=== PATIENT | female | born 1975 | race Caucasian/White ===

== ENCOUNTER 2022-04-13 10:57 | Emergency (ER) | payer MEDICAID, SELFPAY ==
[2022-04-13 11:00] VITALS: BP 145/92; PULSE 77; RESP 16; TEMP 36.7; O2SAT 99; BMI 40.1
--- NOTE | 2022-04-13 11:47 | ED_ITS ---
HPI - Abdominal Pain General: Chief Complaint: Abdominal Pain Stated Complaint: Sent by Dr. Santos for abd pain Time Seen by Provider: 04/13/22 11:46 Source: patient Mode of arrival: ambulatory History of Present Illness: 47-year-old female comes in complaining of abdominal pain that began several days ago. Becoming progressively worse. She is complaining mostly of epigastric pain radiating into her back is worse when she walks. No vomiting or diarrhea low-grade fever at home she denies dysuria urgency or frequency. Usual p.o. intake. Denies any medication melena hematemesis or coffee-ground emesis. MD elicited complaint: abdominal pain Onset (ago): day(s) (4) Pain Consistency: constant Location: Epigastric Severity: moderate Quality: cramping Radiation: none Migration to: no migration Exacerbating factors: nothing Relieving factors: nothing Associated Symptoms: Denies anorexia, belching, bloating, change in bowel habits, change in stool character, chills, coffee ground emesis, constipation, GI cramping, diarrhea, dyspepsia, dysuria, excessive flatus, fever(s), heartburn, hematochezia, hematuria, hematemesis, fecal incontinence, loose stools, melena, nausea, poor appetite, syncope and vomiting Review of Systems Const: Denies: fever(s), chills, fatigue or malaise ENMT: Denies: throat pain, ear or mastoid pain, nasal discharge or nasal congestion Card: Denies: chest pain, palpitations, irregular heart rhythm, edema, swelling of feet/ankles or syncope Resp: Denies: dyspnea, productive cough or non-productive cough GI: Reports: abdominal pain; Denies: nausea, vomiting, hematemesis, coffee ground emesis, heartburn, diarrhea, constipation, bloating, GI cramping, belching, excessive flatus, fecal incontinence, change in bowel habits, change in stool character, hematochezia or melena : Denies: dysuria or hematuria Skin/Breast: Denies: rash or pruritus PFSH ED PFSH: Medical History (Updated 04/13/22 @ 13:41 by Koffi Arce DO) Hypertension Surgical History (Updated 04/13/22 @ 13:21 by Koffi Arce DO) History of appendectomy History of hysterectomy Hx of cholecystectomy Social History (Updated 04/13/22 @ 13:22 by Koffi Arce DO) Smoking and tobacco status: current every day smoker Alcohol intake: current Physical Exam Const: COMMON NORMALS: no acute distress GENERAL APPEARANCE: cooperative and comfortable ORIENTATION/CONSCIOUSNESS: Yes awake, Yes oriented to person, Yes oriented to place and Yes oriented to time HENMT: COMMON NORMALS: normocephalic, atraumatic and hearing grossly normal bilaterally HEAD & SCALP: normocephalic and atraumatic Resp: COMMON NORMALS: normal respiratory effort, No retractions, No use of accessory muscles and clear to auscultation bilaterally AUSCULTATION: clear to auscultation bilaterally Cardio: COMMON NORMALS: regular rate, regular rhythm and No murmurs present (Cardio) RATE: regular rate RHYTHM: regular rhythm GI: COMMON NORMALS: Soft to palpation and No hepatosplenomegaly present AUSCULTATION: Yes normoactive bowel sounds PALPATION: Yes Soft to palpation, No Tenderness to palpation present (GI), No Guarding due to palpation present (GI) and Yes No hepatosplenomegaly present Extremity: COMMON NORMALS: normal to inspection, capillary refill normal, no clubbing, cyanosis or edema, no calf tenderness and no pedal edema Neuro: SENSORIUM/ORIENTATION: Yes oriented to person, Yes oriented to place and Yes oriented to time Skin: COMMON NORMALS: no rashes or lesions noted GENERAL SKIN EXAM: no rashes or lesions noted Course Vital Signs: Vital signs: Vital Signs Temperature 98.0 F 04/13/22 11:00 Pulse Rate 74 04/13/22 13:58 Respiratory Rate 16 04/13/22 13:58 Blood Pressure 118/73 04/13/22 13:58 Pulse Oximetry 100 04/13/22 13:58 Oxygen Delivery Me thod 04/13/22 11:00 MDM - Abdominal Pain Medical Decision Making Elevated white count CT shows diverticulitis started on Cipro and Flagyl. Clear liquid diet next 2 to 3 days and advance as tolerated follow-up with primary care Medical Records I reviewed the patient's medical records. Lab Data I reviewed the patient's lab results. : 04/13/22 12:20 04/13/22 12:20 Labs/Radiology: Radiology Impressions Abdomen/Pelvis CT 04/13/22 12:46 IMPRESSION: 1. Acute sigmoid diverticulitis. No abscess or free air identified. 2. Prior appendectomy and cholecystectomy. 3. Prior hysterectomy. Laboratory Results WBC 13.6 10^3/uL (4.0-10.0) H 04/13/22 12:20 RBC 4.49 10^6/uL (4.1-5.3) 04/13/22 12:20 Hgb 14.4 g/dL (11.5-15.3) 04/13/22 12:20 Hct 43.1 % (37.0-47.0) 04/13/22 12:20 MCV 96.0 fl (81-99) 04/13/22 12:20 MCH 32.1 pg (28.0-34.0) 04/13/22 12:20 MCHC 33.4 g/dL (30.0-36.0) 04/13/22 12:20 RDW 13.1 % (12.1-15.1) 04/13/22 12:20 Plt Count 339 10^3/cmm (130-400) 04/13/22 12:20 MPV 9.2 fL (7.4-10.4) 04/13/22 12:20 Neut % (Auto) 71.7 % 04/13/22 12:20 Lymph % (Auto) 21.0 % 04/13/22 12:20 [place] % (Auto) 5.4 % 04/13/22 12:20 Eos % (Auto) 1.1 % 04/13/22 12:20 Baso % (Auto) 0.4 % 04/13/22 12:20 Neut # (Auto) 9.77 10^3/uL (1.8-7.7) H 04/13/22 12:20 Lymph # (Auto) 2.9 10^3/uL (0.8-4.8) 04/13/22 12:20 [place] # (Auto) 0.7 10^3/uL (0.2-0.9) 04/13/22 12:20 Eos # (Auto) 0.2 10^3/uL (0.0-0.8) 04/13/22 12:20 Baso # (Auto) 0.1 10^3/uL (0.0-0.1) 04/13/22 12:20 Nucleated RBC % (auto) 0 % 04/13/22 12:20 Nucleated RBCs # 0.0 /100WBC 04/13/22 12:20 Sodium 137 mmol/L (136-145) 04/13/22 12:20 Potassium 4.0 mmol/L (3.5-5.1) 04/13/22 12:20 Chloride 101 mmol/L (98-107) 04/13/22 12:20 Carbon Dioxide 26 mmol/L (22-29) 04/13/22 12:20 Anion Gap 14.0 (5-19) 04/13/22 12:20 BUN 7 mg/dL (6-20) 04/13/22 12:20 Creatinine 0.6 mg/dL (0.5-0.9) 04/13/22 12:20 GFR Calculation 106.3 mL/min (90-130) 04/13/22 12:20 Glucose 90 mg/dL (65-115) 04/13/22 12:20 Calculated Osmolality 282 mOsm/kg (285-295) L 04/13/22 12:20 Calcium 8.8 mg/dL (8.5-10.5) 04/13/22 12:20 Total Bilirubin 0.4 mg/dL (0.15-1.2) 04/13/22 12:20 AST 22 U/L (0-32) 04/13/22 12:20 ALT 29 U/L (0-33) 04/13/22 12:20 Alkaline Phosphatase 54 U/L (35-105) 04/13/22 12:20 Total Protein 7.3 g/dL (6.6-8.7) 04/13/22 12:20 Albumin 4.0 g/dL (3.5-5.2) 04/13/22 12:20 Globulin 3.3 g/dL (1.3-4.6) 04/13/22 12:20 Lipase 41 U/L (13-60) 04/13/22 12:20 Urine Color Yellow (Yellow) 04/13/22 12:14 Urine Appearance Clear (CLEAR) 04/13/22 12:14 Urine pH 5 (5-7) 04/13/22 12:14 Ur Specific [place] 1.015 (1.005-1.030) 04/13/22 12:14 Urine Protein 1+ (Negative) H 04/13/22 12:14 Urine Glucose (UA) Norm (Normal) 04/13/22 12:14 Urine Ketones Negative (Negative) 04/13/22 12:14 Urine Blood 2+ (Negative) H 04/13/22 12:14 Urine Nitrate Negative (Negative) 04/13/22 12:14 Urine Bilirubin Neg (Negative) 04/13/22 12:14 Urine Urobilinogen Norm mg/dL (Negative) 04/13/22 12:14 Ur Leukocyte Esterase Negative (Negative) 04/13/22 12:14 Urine RBC 0-4 /hpf (0-2) H 04/13/22 12:14 Urine WBC 0-4 /hpf (0-5) H 04/13/22 12:14 Ur Squamous Epith Cells 5-10 /hpf (0-5) H 04/13/22 12:14 Amorphous Sediment Not Reportable 04/13/22 12:14 Urine Bacteria Trace /hpf (NONE) 04/13/22 12:14 Discharge Plan Discharge Patient Disposition: Home Clinical Impression: Diverticulitis Condition: Stable Prescriptions: New ondansetron HCl 4 mg tablet 4 mg PO Q6H PRN (Reason: nausea and vomiting) Qty: 20 0RF Cipro 500 mg tablet 500 mg PO BID Qty: 20 0RF metronidazole 500 mg tablet 500 mg PO BID 10 Days Qty: 20 0RF No Action metoprolol tartrate 50 mg tablet 50 mg PO BID lisinopril 40 mg tablet 40 mg PO QAM hydrochlorothiazide 12.5 mg tablet 12.5 mg PO DAILY PRN (Reason: Edema) Discharge Orders: Discharge ED (Routine); Ordered 04/13/22 Ordered By: Koffi Arce Referrals: Ingrid Sanders PA-C [Primary Care Provider] - Discharge Diet: Clear Liquid Discharge Activity: Increase activity as tolerated Patient Instructions: Opioid Safety, Pain Management Activity Restrictions/Additional Instructions: Clear liquid diet x2 days then advance as tolerated. Start Cipro and Flagyl twice daily for 10 days. Ondansetron as needed for nausea and vomiting. Follow-up with your primary care doctor. Coding Level of Care Code ED [employer] for [employer]g Fwd Exam Detailed
--- NOTE | 2022-04-13 11:47 | ECG_ITS ---
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 Measurements Intervals [place] Rate: 74 P: 10 NE: 182 QRS: 55 QRSD: 89 T: 85 QT: 399 QTc: 443 Interpretive Statements SINUS RHYTHM NONSPECIFIC T-WAVE ABNORMALITY No previous ECG available for comparison Electronically Signed On 04-13-2022 21:21:42 CDT by Олег Ramos M.D. [id number]
[2022-04-13 12:35] LABS: Basophils # 0.1 10^3/uL (0.0-0.1); Basophils % 0.4 %; Eosinophils # 0.2 10^3/uL (0.0-0.8); Eosinophils % 1.1 %; Hematocrit 43.1 % (37.0-47.0); Hemoglobin 14.4 g/dL (11.5-15.3); Lymphocytes # 2.9 10^3/uL (0.8-4.8); Mean Corpuscular HGB Conc 33.4 g/dL (30.0-36.0); Mean Corpuscular Hemoglobin 32.1 pg (28.0-34.0); Mean Platelet Volume 9.2 fL (7.4-10.4); Monocytes # 0.7 10^3/uL (0.2-0.9); Monocytes % 5.4 %; Neutrophils # 9.77 10^3/uL (1.8-7.7); Neutrophils % 71.7 %; Nucleated Red Blood Cells % 0 %; Platelet Count 339 10^3/cmm (130-400); Red Blood Count 4.49 10^6/uL (4.1-5.3); Red Cell Distribution Width 13.1 % (12.1-15.1); White Blood Count 13.6 10^3/uL (4.0-10.0)
[2022-04-13 12:40] LABS: Add Urine Microscopic? YES; Bilirubin Urine Neg (Negative); Blood Urine 2+ (Negative); Glucose Urine UA Norm (Normal); Ketones Urine Negative (Negative); Leukocyte Esterase Urine Negative (Negative); Nitrate Urine Negative (Negative); Protein Urine 1+ (Negative); Specific Gravity, Urine 1.015 (1.005-1.030); Urine Appearance Clear (CLEAR); Urine Color Yellow (Yellow); Urobilinogen Urine Norm (Negative); pH Urine 5 (5-7)
--- NOTE | 2022-04-13 12:46 | CT_ITS ---
WS: [id number] CT ABDOMEN AND PELVIS NONCONTRAST HISTORY: Abdominal pain TECHNIQUE: Imaging performed through the abdomen and pelvis. Coronal and sagittal reformats are submi tted. All CT scans at [facility] use at least one of these dose optimization techniques: auto mated exposure control; mA and/or kV adjustment per patient size (includes targeted exams where dose is matched to clinical indication); or iterative reconstruction. DLP: 961.23 mGy.cm COMPARISON: None available. Lower thorax: Lung bases are clear. Visualized heart is normal. No hiatal hernia. Liver: Liver is slightly enlarged. No mass or bile duct dilatation on this unenhanced exam. Gallbladder: Prior cholecystectomy. Pancreas: Normal size and attenuation. Normal pancreatic duct. No pancreatitis or mass. Spleen: Normal. Adrenal glands: Normal. No mass. Right kidney: Normal size kidney with no mass or hydronephrosis. Left kidney: Normal size kidney with no mass or hydronephrosis. Aorta: Mild atherosclerosis aorta. No aneurysm. No free fluid, intraperitoneal air or significant lymphadenopathy. GI tract: Nondistended stomach. No small bowel obstruction or enteritis. Prior appendectomy. Moderate acute inflammation involving the sigmoid colon. Perisigmoid inflammation extends over a length of ap proximately 8 cm with several adjacent diverticula. There is wall thickening and narrowing of the lum en. No abscess. Abdominal wall: Small umbilical hernia contains fat only. Pelvis: Prior hysterectomy. The uterus is not identified. Ovaries are still present. The LEFT ovary c ontains a small cyst measuring 2.7 x 1.8 cm. No free fluid. Osseous structures: Prior posterior lumbar fusion at L5-S1. CT/CT abdomen pelvis wo con [id number] IMPRESSION: 1. Acute sigmoid diverticulitis. No abscess or free air identified. 2. Prior appendectomy and cholecystectomy. 3. Prior hysterectomy.
[2022-04-13 12:55] LABS: Add Urine Culture? No; Bacteria Urine TRACE /hpf; RBC Urine 0-4 /hpf (0-2); WBC Urine 0-4 /hpf (0-5)
[2022-04-13 12:56] LABS: Alanine Aminotransferase 29 U/L (0-33); Alkaline Phosphatase 54 U/L (35-105); Aspartate Amino Transferase 22 U/L (0-32); Blood Urea Nitrogen 7 mg/dL (6-20); Calcium 8.8 mg/dL (8.5-10.5); Carbon Dioxide 26 mmol/L (22-29); Chloride 101 mmol/L (98-107); Globulin 3.3 g/dL (1.3-4.6); Glomerular Filtration Rate 106.3 mL/min (90-130); Glucose 90 mg/dL (65-115); Lipase 41 U/L (13-60); Osmolality Calculated 282 mOsm/kg (285-295); Sodium 137 mmol/L (136-145); Total Bilirubin 0.4 mg/dL (0.15-1.2); Total Protein 7.3 g/dL (6.6-8.7)
[2022-04-13 13:58] VITALS: BP 118/73; PULSE 74; RESP 16; O2SAT 100
== END 2022-04-13 14:00 | disposition home or self-care (01) ==
PROVIDERS: Emergency Provider Family Medicine; PCP Physician Assistant
DX: K57.92 Diverticulitis of intestine, part unspecified, without perforation or abscess without bleeding (principal); I10 Essential (primary) hypertension; F17.210 Nicotine dependence, cigarettes, uncomplicated
CPT/HCPCS: 74176; 80053; 81001; 83690; 85025; 93005; 99285

== ENCOUNTER → 2022-07-08 09:36 | Outpatient (BNVA) | payer MEDICAID, SELFPAY | PROVIDERS: PCP Physician Assistant; Visit Provider Podiatrist Foot & Ankle Surgery | DX: M77.51 Other enthesopathy of right foot and ankle (principal); M76.61 Achilles tendinitis, right leg; L84 Corns and callosities; B35.1 Tinea unguium | CPT/HCPCS: 73630 ==

== ENCOUNTER 2022-11-24 13:03 | Outpatient (CLI) | payer MEDICAID, SELFPAY ==
--- NOTE | 2022-11-24 13:13 | MM_ITS ---
WS: [id number] BILATERAL 3D TOMOSYNTHESIS DIGITAL DIAGNOSTIC MAMMOGRAPHY WITH CAD CLINICAL INFORMATION: LUMPS/DISCHARGE RT BREAST HISTORY: Milky RIGHT nipple discharge. Chronic bilateral breast lumps. COMPARISON: None. TECHNIQUE: Bilateral CC, MLO, and ML views. FINDINGS: Scattered fibroglandular densities bilaterally. Dense nodular parenchymal tissue upper outer LEFT bruna ast. No suspicious abnormalities in the RIGHT breast deep to the areola. Ultrasound of the RIGHT areola and LEFT upper outer breast are pending. ULTRASOUND BREAST BILATERAL TECHNIQUE: Ultrasound bilateral breast focused area of concern. CLINICAL INFORMATION: LUMPS/DISCHARGE RT BREAST FINDINGS: RIGHT BREAST: Ultrasound RIGHT areola. Normal underlying parenchymal tissue. No suspicious lesions de ep to the RIGHT areola. LEFT BREAST: Ultrasound LEFT breast 12 to 3:00 position. At the 1:00 position 3 cm from the nipple th ere is a 6 x 5 x 5 mm incidental benign cyst. No other suspicious abnormalities. MM/[place] [id number] IMPRESSION: BI-RADS: 2-Benign FOLLOW UP: 1 Year Follow-up Recommend return to annual screening mammography.
== END 2022-11-24 13:04 | disposition home or self-care (01) ==
PROVIDERS: PCP Physician Assistant; Visit Provider Family Medicine
DX: N63.0 Unspecified lump in unspecified breast (principal); N60.02 Solitary cyst of left breast
CPT/HCPCS: 76642; 77062; G0279

== ENCOUNTER 2022-11-26 06:47 | Day surgery (SDC) | payer MEDICAID, SELFPAY ==
[2022-11-25 09:28] VITALS: BMI 42.0
[2022-11-26] VITALS (10 sets, daily range): BP systolic 93–109; BP diastolic 58–70; PULSE 58–63; RESP 16–18; TEMP 36.1; O2SAT 90–96
--- NOTE | 2022-11-26 | XR_ITS ---
WS: [id number] C-arm fluoroscopy of the right calcaneus, 11/26/2022 Clinical Data: [facility] Comparison: None. Findings: Dr. Phillips performed an intervention on the posterior right calcaneus. XR/XR calcaneus RT min 2V 03426 Impression: Right calcaneal surgery.
[2022-11-26] MEDS: acetaminophen 1,000 MG/100 ML PIGGYBACK 400 MG IV (07:28)
[2022-11-26] MEDS: gabapentin 300 mg Capsule PO (07:28)
[2022-11-26] MEDS: sodium chloride 0.9% 1,000 ML 30 ML IV (07:48)
--- NOTE | 2022-11-26 07:54 | W.PM.OPSUD ---
Surgery/Procedure H&P Update DATE OF PROCEDURE: November 26, 2022 DATE H&P PERFORMED: 10/28/22 CHANGES TO PREVIOUS DOCUMENTATION: No changes PREOP DIAGNOSIS: Right Achilles tendinitis PLANNED PROCEDURE: Operation Date: 11/26/22 08:00 Proposed Procedures p Partial excision bone calcaneus right foot CPT 31830,M65.271(Right) - Los Phillips DPM s Secondary repair Achilles tendon right foot CPT 88114(Right) - Los Phillips DPM s Flexor hallucis longus tendon transfer CPT 03449(Right) - Los Phillips DPM
[2022-11-26] MEDS: clindamycin 600 MG/50 ML PREMIX 100 MG IV (08:08)
--- NOTE | 2022-11-26 10:34 | ANES.PREANE2 ---
Pre-Anesthetic Assessment Height/Weight: Height 1.57 m Weight 104.326 kg Temp Pulse Resp BP Pulse Ox O2 Del Method O2 Flow Rate 97.0 F L 61 18 108/67 93 Room Air 6 11/26/22 10:32 11/26/22 10:32 11/26/22 10:32 11/26/22 10:32 11/26/22 10:32 11/26/22 10:32 11/26/22 10:08 Preop Diagnosis: Right Achilles tendinitis Operation Date: 11/26/22 08:00 Proposed Procedures p Partial excision bone calcaneus right foot CPT 70848,M65.271(Right) - Los Phillips DPM s Secondary repair Achilles tendon right foot CPT 04114(Right) - Los Phillips DPM s Flexor hallucis longus tendon transfer CPT 33733(Right) - Los Phillips DPM Familial anesthetic complications: none Was Beta Nuha taken within 24 hours: Yes Was Clonidine taken within 24 hours: N/A Last intake: Intake Last Liquid Date 11/25/22 Last Liquid Time 00:00 Last Solid Date 11/25/22 Last Solid Time 21:00 Social No alcohol and No tobacco Exam alert, oriented x 3, clear to auscultation bilaterally and regular rate & rhythm Airway Submandibular: within normal limits Cervical ROM: within normal limits Mallampati: Class II Dentition: full CV/HEM Hypertension Metabolic Morbid Obesity Anesthetic Plan ASA status: 3 Anesthesia: General and Regional (specify below) (right pop blk) Medications/Allergies Home Medications Medication Instructions Recorded Confirmed Last Taken Type lisinopril 40 mg tablet 40 mg PO QAM 04/13/22 11/26/22 11/25/22 History metoprolol tartrate 50 mg tablet 50 mg PO BID 04/13/22 11/26/22 11/26/22 History amlodipine 10 mg tablet 10 mg PO DAILY 08/12/22 11/26/22 11/26/22 History fenofibrate 54 mg tablet 54 mg PO DAILY 08/12/22 11/25/22 11/25/22 History acetaminophen 650 mg 650 mg PO Q8H 11/25/22 11/25/22 11/25/22 History tablet,extended release (Tylenol 8 Hour) hydrocodone 5 mg-acetaminophen 325 1 tab PO Q6H PRN pain #28 tabs 11/26/22 Unknown Rx mg tablet Allergies Allergy/AdvReac Type Severity Reaction Status Date / Time Penicillins Allergy ALGY-Swell Verified 11/25/22 09:23 Lip/Tongue/Throat Current Medications Generic Name Dose Route Start Last Admin Trade Name Jonathan PRN Reason Stop Dose Admin Sodium Chloride 1,000 mls @ 30 mls/hr 11/26/22 07:30 11/26/22 07:48 Sodium Chloride 0.9% IV 30 mls/hr .Q24H CHRISTOPHER Administration PFSH Anesthesia Medical History Hypertension Surgical History History of appendectomy History of hysterectomy Hx of cholecystectomy Social History Smoking and tobacco status: current every day smoker Alcohol intake: current Data Anesthesia Cardiac Studies: No Data to Display Anesthesia Procedures Nerve Block Nerve Block 1: Main Anesthesia: general anesthesia Time Out Performed: Yes Consent: requested by attending/covering physician, from patient, risks and benefits reviewed and patient agrees to proceed Nerve block location: popliteal (right) Anesthesia monitors applied: pulse oximetry, EKG, BP cuff and oxygen Nerve block position: supine Anesthetic Used: ropivicaine 0.5% Amount of anesthesia used (mL): 30 Ultrasound used to: recognize landmarks Nerve Stimulator Used?: No Interscalene/Femoral BLK: 4 stimuplex 21 g needle used for position and inplane approach Injection: neg aspiration of heme Patient Tolerated Procedure: well Complications: none
[2022-11-26] MEDS: HYDROcodone-acetaminophen 5-325 mg Tablet 1 TAB PO (10:35)
[2022-11-26] MEDS: HYDROmorphone 1 mg/mL INJ 1 mL 0.5 MG IVP (10:53)
--- NOTE | 2022-11-26 16:20 | P.OP_ITS ---
Operative Report Date of procedure: November 26, 2022 Pre-op diagnosis: Preop Diagnosis Right Achilles tendinitis Post-op diagnosis: 1. Right Achilles tendinitis 2. Right retrocalcaneal exostosis Post-op findings: Degenerative changes to right Achilles tendon and large retrocalcaneal bone spur Procedure done: 1. Partial excision bone calcaneus right foot CPT 45458 2. Secondary repair Achilles tendon right foot CPT 86180 Implants: [employer] speed bridge Surgeon: Spencer ReesPKurtis Estimated blood loss: Less than 10 cc Procedure: Patient is a 47-year-old female that has a history of right Achilles tendinitis and retrocalcaneal bone spur. The patient has had the aforementioned chief complaint for some time. Conservative treatment measures have been attempted and the patient has opted for surgical intervention at this time. A lengthy discussion regarding the procedure, including risks and complications has been had with the patient and is noted in the recent clinic note. Written and verbal consent have been obtained. All patient questions have been answered to the patient?s satisfaction. No written or verbal guarantees have been given or implied. The patient has been NPO since midnight. The history has been reviewed and the history and physical is current. The signed consent was confirmed and placed in the patient chart. Patient imaging has been reviewed and is consistent with the diagnosis. Under mild sedation, the patient was brought into the operating room and placed on the table in the prone position. IV antibiotics were given by the anesthesia team as preoperative surgical prophylaxis. General sedation was then performed by the anesthesiateam. A pneumatic tourniquet was then placed about the right thigh. The operative extremity was then prepped and draped in the usual fashion. The extremity was then elevated and exsanguinated before the tourniquet was inflated to 325 mmHg. After inflation, the following procedure was then performed. Attention was directed to the posterior aspect of the right heel.An approximately 6 cm longitudinal incision was made over the posterior aspect of the heel, centered over the Edward's deformity. The incision was deepened through the skin and subcutaneous tissue, and the underlying Achilles tendon was identified and protected. Using a combination of sharp dissection and electrocautery, the soft tissues were carefully dissected to expose the promi nent bony prominence associated with the Edward's deformity. A sagittal saw and rongeurs were utilized to perform a resection of the bony prominence, taking care to protect the underlying soft tissues. Following the Edward's resection, attention was turned to the Achilles tendon. Any adhesions, scar tissue, or degenerative tissue present within the tendon were meticulously debrided using a combination of sharp dissection and a shaver. Care was taken to preserve healthy tendon tissue and maintain the integrity of the tendon. After the debridement, the [employer] Speed Bridge system was employed for the repair of the Achilles tendon. The appropriate drill holes were made in the calcaneus and the distal end of the tendon. Sutures were then passed through the drill holes, and the tendon was repaired using the Speed Bridge construct, achieving stable fixation. The wound was thoroughly irrigated with saline solution to remove any debris or bone fragments. Hemostasis was achieved, and the wound was closed in layers. The subcutaneous tissue was approximated with absorbable sutures, and the skin was closed with a combination of absorbable sutures and 3-0 nylon. A sterile dressing was applied over the surgical site, and a well-padded posterior splint was applied to immobilize the foot and ankle. The patient tolerated the procedure well, and there were no intraoperative complications. The tourniquet was let down and good hyperemic response was noted all digits of the right foot The patient tolerated the procedure and anesthesia well and without complication. The patient was transported from the operating room to the recovery room with vital signs stable and vascular status intact to all digits of the right foot. The patient was given both written and verbal instructions to remain nonweightbearing to the operative extremity, to keep dressings/splint clean, dry and intact and to take pain medication as directed. The patient will follow-up in the outpatient setting at their scheduled appointment. The patient was discharged with my personal number and was instructed to call if any questions or issues should arise. They were discharged home once anesthesia criteria was met.
--- NOTE | 2022-11-26 16:58 | ANE.PACU2 ---
Inpatient post-anesthesia follow up: Airway intact: Yes Vital signs: Temperature 97.0 F Pulse Rate 58 Respiratory Rate 18 Blood Pressure 106/61 Pulse Oximetry 96 Oxygen Delivery Me thod Room Air Oxygen Flow Rate 6 Fraction of Inspir ed Oxygen Hydration adequate: Yes Nausea and vomiting: No Pain level: 3 Mental status: Baseline
== END 2022-11-26 11:23 | disposition home or self-care (01) ==
PROVIDERS: PCP Physician Assistant; Visit Provider Podiatrist Foot & Ankle Surgery
PROC: (CPT 27654; principal; 2022-11-26 08:00)
PROC: (CPT 27654; 2022-11-26 08:00)
PROC: (CPT 27654; 2022-11-26 08:00)
DX: M76.61 Achilles tendinitis, right leg (principal); M77.31 Calcaneal spur, right foot; I10 Essential (primary) hypertension; E66.01 Morbid (severe) obesity due to excess calories; Z68.41 Body mass index [BMI] 40.0-44.9, adult; F17.200 Nicotine dependence, unspecified, uncomplicated
CPT/HCPCS: 27654; 28118; 73650; 76000; J0131; J0330; J1100; J1170; J2250; J2370; J2405; J2704; J2710; J2795; J3010; J3490; J7030

== ENCOUNTER 2022-12-10 15:39 | Outpatient (CLI) | payer MEDICAID, SELFPAY | END 2022-12-10 15:40 | disposition home or self-care (01) | LOC: SPT 15:40 | PROVIDERS: PCP Physician Assistant; Visit Provider Podiatrist Foot & Ankle Surgery | DX: Z46.89 Encounter for fitting and adjustment of other specified devices (principal); Z98.890 Other specified postprocedural states | CPT/HCPCS: 97760; L4361 ==

== ENCOUNTER → 2022-12-23 14:42 | Outpatient (BNVA) | payer MEDICAID, SELFPAY | PROVIDERS: PCP Physician Assistant; Visit Provider Podiatrist Foot & Ankle Surgery | DX: Z98.890 Other specified postprocedural states (principal) | CPT/HCPCS: 73630 ==

== ENCOUNTER → 2023-01-06 14:52 | Outpatient (BNVA) | payer MEDICAID, SELFPAY | PROVIDERS: PCP Physician Assistant; Visit Provider Podiatrist Foot & Ankle Surgery | DX: M79.671 Pain in right foot (principal); T81.49XA Infection following a procedure, other surgical site, initial encounter; Y83.8 Other surgical procedures as the cause of abnormal reaction of the patient, or of later complication, without mention of misadventure at the time of the procedure; Z98.890 Other specified postprocedural states | CPT/HCPCS: 73630; 87070; 87075; 87077; 87186; 87205 ==

== ENCOUNTER 2023-03-08 03:44 | Emergency (ER) | payer MEDICAID, SELFPAY ==
[2023-03-08 03:48] VITALS: BP 171/82; PULSE 83; RESP 18; TEMP 36.5; O2SAT 95; BMI 38.7
--- NOTE | 2023-03-08 03:53 | CTR_ITS ---
PROCEDURE INFORMATION: Exam: CT Abdomen And Pelvis With Contrast Exam date and time: 03/08/2023 4:00 AM Age: 48 years old Clinical indication: Abdominal pain; Localized; Left lower quadrant (llq); Prior surgery; Surgery date: 6+ months; Surgery type: Gb. Appy. Hysterectomy. Lumbar fusion. Patient HX: C/O llq pain; Additional info: Abd pain TECHNIQUE: Imaging protocol: Computed tomography of the abdomen and pelvis with contrast. Radiation optimization: All CT scans at this facility use at least one of these dose optimization techniques: automated exposure control; mA and/or kV adjustment per patient size (includes targeted exams where dose is matched to clinical indication); or iterative reconstruction. Contrast material: OMNI 350; Contrast volume: 100 ml; Contrast route: INTRAVENOUS (IV); REPORTING DATA: Count of CT and Cardiac NM exams in prior 12 months: This patient has received [address] and 0 known cardiac nuclear medicine studies in the 12 months prior to the current study. COMPARISON: CT abdomen pelvis wo con [id number] 04/13/2022 1:03 PM RADIATION DOSE METRICS: Total DLP (mGy-cm): 955.93 FINDINGS: Liver: Normal. No mass. Gallbladder and bile ducts: Cholecystectomy. Unremarkable biliary system. Pancreas: Normal. No ductal dilation. Spleen: Normal. No splenomegaly. Adrenal glands: Normal. No mass. Kidneys and ureters: Normal. No hydronephrosis. Stomach and bowel: Diverticulosis coli. Enlarged enhancing diverticulum in the proximal sigmoid colon segment with adjacent stranding conspicuous axial series 4, image 54 and coronal reconstruction series 6, image 25. Negative for bowel obstruction. Appendix: No evidence of appendicitis. Intraperitoneal space: Unremarkable. No free air. No significant fluid collection. Vasculature: Unremarkable. No abdominal aortic aneurysm. Lymph nodes: Unremarkable. No enlarged lymph nodes. Urinary bladder: Unremarkable as visualized. Reproductive: Hysterectomy. Mildly enlarged left ovary with small cyst estimated 2.6 cm x 2.3 cm. Normal right ovary. Bones/joints: L5-S1 lumbar spine fusion without complication. Negative fracture. Soft tissues: Unremarkable. CT/CT abdomen pelvis w con* [id number] IMPRESSION: Acute diverticulitis in the proximal sigmoid colon.
--- NOTE | 2023-03-08 03:54 | W.ED.ABDPA2 ---
HPI - Abdominal Pain General: Chief Complaint: Abdominal Pain Stated Complaint: abd pain Time Seen by Provider: 03/08/23 03:48 Source: patient Mode of arrival: ambulatory Limitations: no limitations History of Present Illness: 48-year-old female states she been having abdominal pain throughout the day. States been suprapubic and left lower quadrant is worsened tonight states pain sharp in nature rates it a 6 out of 10. She denies any fever denies any vomiting or diarrhea denies any radiation of her pain. Associated Symptoms: Denies chills, diarrhea, dysuria, fever(s), nausea and vomiting Review of Systems Const: Denies: fever(s), chills, body aches or change in appetite ENMT: Denies: throat pain or dental pain Card: Denies: chest pain Resp: Denies: dyspnea GI: Reports: abdominal pain; Denies: nausea, vomiting or diarrhea : Denies: dysuria Musc: Denies: neck pain or back pain Skin/Breast: Denies: rash Neuro: Denies: headache(s) PFSH ED PFSH: Medical History Hypertension Surgical History History of appendectomy History of hysterectomy Hx of cholecystectomy Social History Smoking and tobacco status: current every day smoker Alcohol intake: current Physical Exam Const: COMMON NORMALS: no acute distress, patient oriented x3 and healthy appearing HENMT: COMMON NORMALS: normocephalic and atraumatic HEAD & SCALP: normocephalic and atraumatic Eye: COMMON NORMALS: conjunctivae normal CONJUNCTIVA: Yes conjunctivae normal Neck/C-Spine: COMMON NORMALS: full ROM and supple Chest: COMMONS NORMALS: normal inspection of the chest and normal palpation of entire chest wall Resp: COMMON NORMALS: normal respiratory effort, No retractions, No use of accessory muscles and clear to auscultation bilaterally AUSCULTATION: clear to auscultation bilaterally Cardio: COMMON NORMALS: regular rate, regular rhythm and No murmurs present (Cardio) RATE: regular rate RHYTHM: regular rhythm GI: COMMON NORMALS: Normal to inspection, nondistended, normoactive bowel sounds present, Soft to palpation and no masses PALPATION: Yes Soft to palpation and Yes Tenderness to palpation present (GI) Details: LLQ Extremity: COMMON NORMALS: normal to inspection and full ROM Neuro: COMMON NORMALS: patient oriented x3, moves all extremities and no focal motor deficits Psych: COMMON NORMALS: mental status grossly normal, Normal thought process present and cooperative THOUGHT PROCESS: Normal thought process present Skin: COMMON NORMALS: no rashes or lesions noted and no wounds GENERAL SKIN EXAM: no rashes or lesions noted Course Vital Signs: Vital signs: Vital Signs Temperature 97.7 F 03/08/23 03:48 Pulse Rate 71 03/08/23 04:36 Respiratory Rate 18 03/08/23 04:36 Blood Pressure 110/68 03/08/23 04:36 Pulse Oximetry 93 03/08/23 04:36 Oxygen Delivery Me thod Nasal Cannula 03/08/23 04:36 Oxygen Flow Rate 2 03/08/23 04:36 MDM - Abdominal Pain Medical Decision Making Patient presents with abdominal pain CT does show diverticulitis her pains improved. She wants to try oral treatment at home we will start her on Cipro Flagyl she is to follow-up with PCP return if worsening she understands agrees to plan. Medical Records I reviewed the patient's medical records. Lab Data I reviewed the patient's lab results. 03/08/23 03:58 03/08/23 03:58 Labs/Radiology: Radiology Impressions Abdomen/Pelvis CT 03/08/23 03:53 IMPRESSION: Acute diverticulitis in the proximal sigmoid colon. Laboratory Results WBC 16.82 10^3/uL (3.29-11.43) H 03/08/23 03:58 RBC 5.00 10^6/uL (3.85-5.65) 03/08/23 03:58 Hgb 15.90 g/dL (11.27-16.99) 03/08/23 03:58 Hct 46.5 % (36-47) 03/08/23 03:58 MCV 93.0 fl (85-98) 03/08/23 03:58 MCH 31.8 pg (27-33) 03/08/23 03:58 MCHC 34.2 g/dL (30-55) 03/08/23 03:58 RDW 12.9 % (12.1-15.1) 03/08/23 03:58 Plt Count 304 10^3/cmm (157-399) 03/08/23 03:58 MPV 9.0 fL (7.4-10.4) 03/08/23 03:58 Neut % (Auto) 79.9 % 03/08/23 03:58 Lymph % (Auto) 11.6 % 03/08/23 03:58 [place] % (Auto) 7.1 % 03/08/23 03:58 Eos % (Auto) 0.7 % 03/08/23 03:58 Baso % (Auto) 0.3 % 03/08/23 03:58 Neut # (Auto) 13.45 10^3/uL (1.8-7.7) H 03/08/23 03:58 Lymph # (Auto) 2.0 10^3/uL (0.8-4.8) 03/08/23 03:58 [place] # (Auto) 1.2 10^3/uL (0.2-0.9) H 03/08/23 03:58 Eos # (Auto) 0.1 10^3/uL (0.0-0.8) 03/08/23 03:58 Baso # (Auto) 0.1 10^3/uL (0.0-0.1) 03/08/23 03:58 Nucleated RBC % (auto) 0 % 03/08/23 03:58 Nucleated RBCs # 0.0 /100WBC 03/08/23 03:58 Sodium 137 mmol/L (136-145) 03/08/23 03:58 Potassium 3.5 mmol/L (3.5-5.1) 03/08/23 03:58 Chloride 103 mmol/L (98-107) 03/08/23 03:58 Carbon Dioxide 22 mmol/L (22-29) 03/08/23 03:58 Anion Gap 15.5 (5-19) 03/08/23 03:58 BUN 16 mg/dL (6-20) 03/08/23 03:58 Creatinine 0.5 mg/dL (0.5-0.9) 03/08/23 03:58 GFR Calculation 130.6 mL/min (90-130) H 03/08/23 03:58 Glucose 109 mg/dL (65-115) 03/08/23 03:58 Calculated Osmolality 286 mOsm/kg (285-295) 03/08/23 03:58 Calcium 9.1 mg/dL (8.5-10.5) 03/08/23 03:58 Total Bilirubin 0.3 mg/dL (0.15-1.2) 03/08/23 03:58 AST 12 U/L (0-32) 03/08/23 03:58 ALT 17 U/L (0-33) 03/08/23 03:58 Alkaline Phosphatase 55 U/L (35-105) 03/08/23 03:58 Total Protein 7.0 g/dL (6.6-8.7) 03/08/23 03:58 Albumin 4.4 g/dL (3.5-5.2) 03/08/23 03:58 Globulin 2.6 g/dL (1.3-4.6) 03/08/23 03:58 Lipase 32 U/L (13-60) 03/08/23 03:58 Urine Color Yellow (Yellow) 03/08/23 04:15 Urine Appearance Clear (CLEAR) 03/08/23 04:15 Urine pH 5 (5-7) 03/08/23 04:15 Ur Specific [place] 1.020 (1.005-1.030) 03/08/23 04:15 Urine Protein 2+ (Negative) H 03/08/23 04:15 Urine Glucose (UA) Norm (Normal) 03/08/23 04:15 Urine Ketones 1+ (Negative) H 03/08/23 04:15 Urine Blood 2+ (Negative) H 03/08/23 04:15 Urine Nitrate Negative (Negative) 03/08/23 04:15 Urine Bilirubin Neg (Negative) 03/08/23 04:15 Urine Urobilinogen Neg mg/dL (Negative) 03/08/23 04:15 Ur Leukocyte Esterase Negative (Negative) 03/08/23 04:15 Amorphous Sediment Not Reportable 03/08/23 04:15 Discharge Plan Discharge Patient Disposition: Home Clinical Impression: Diverticulitis Condition: Stable Prescriptions: New hydrocodone-acetaminophen 5-325 mg tablet 1 tab PO Q6H PRN (Reason: pain) Qty: 14 0RF metronidazole 500 mg tablet 500 mg PO Q8H 7 Days Qty: 21 0RF Cipro 500 mg tablet 500 mg PO BID Qty: 14 0RF ondansetron 4 mg tablet,disintegrating 4 mg PO Q6H PRN (Reason: nausea and vomiting) Qty: 14 0RF No Action hydrocodone-acetaminophen 5-325 mg tablet 1 tab PO Q6H PRN (Reason: pain) 3 Days Qty: 12 0RF sulfamethoxazole-trimethoprim [Bactrim DS] 800-160 mg tablet 1 tab PO BID Qty: 14 0RF (DME) heel wedge See Rx Instructions .Route .MEDSUPPLY Qty: 1 0RF Rx Instructions: As directed methylprednisolone [Medrol (Darryl)] 4 mg tablets,dose pack See Rx Instructions PO PER PKG DIR Qty: 21 0RF Rx Instructions: PO PER PKG DIR fenofibrate 54 mg tablet 54 mg PO DAILY amlodipine 10 mg tablet 10 mg PO DAILY (DME) CAM boot 9 See Rx Instructions .Route .MEDSUPPLY Qty: 1 0RF Rx Instructions: As directed NON WEIGHT BEARING hydrocodone-acetaminophen 5-325 mg tablet 1 tab PO Q6H PRN (Reason: pain) 4 Days Qty: 16 0RF metoprolol tartrate 50 mg tablet 50 mg PO BID lisinopril 40 mg tablet 40 mg PO QAM Tylenol 8 Hour 650 mg Tablet Extended Release 650 mg PO Q8H Discharge Orders: Discharge ED (Routine); Ordered 03/08/23 Ordered By: Arjun Marte Referrals: Ingrid Sanders PA-C [Primary Care Provider] - 1-3 days Discharge Diet: Advance as tolerated Discharge Activity: Resume usual activity Patient Instructions: Diverticulitis (ED), Opioid Safety Coding Level of Care Code ED Piercing Specialist for Dixon Shearer
[2023-03-08] MEDS: iohexol 350 mg/mL 500 mL Btl (per mL) IV (04:01)
[2023-03-08 04:05] LABS: Basophils # 0.1 10^3/uL (0.0-0.1); Basophils % 0.3 %; Eosinophils # 0.1 10^3/uL (0.0-0.8); Eosinophils % 0.7 %; Hematocrit 46.5 % (36-47); Lymphocytes % 11.6 %; Mean Corpuscular HGB Conc 34.2 g/dL (30-55); Mean Corpuscular Hemoglobin 31.8 pg (27-33); Monocytes # 1.2 10^3/uL (0.2-0.9); Monocytes % 7.1 %; Neutrophils # 13.45 10^3/uL (1.8-7.7); Neutrophils % 79.9 %; Nucleated Red Blood Cells % 0 %; Platelet Count 304 10^3/cmm (157-399); Red Cell Distribution Width 12.9 % (12.1-15.1); White Blood Count 16.82 10^3/uL (3.29-11.43)
[2023-03-08] MEDS: sodium chloride 0.9% 1,000 ML 999 ML IV (04:09)
[2023-03-08 04:18] VITALS: RESP 18; O2SAT 95
[2023-03-08] MEDS: ondansetron 2 mg/ML SDV 2 mL 4 MG IVP (04:18)
[2023-03-08] MEDS: morphine 4 mg/mL SDV 1 mL IVP (04:18)
[2023-03-08 04:21] VITALS: BP 171/82; PULSE 76; RESP 18; O2SAT 92
[2023-03-08 04:27] LABS: Alanine Aminotransferase 17 U/L (0-33); Albumin Level 4.4 g/dL (3.5-5.2); Alkaline Phosphatase 55 U/L (35-105); Anion Gap 15.5 (5-19); Aspartate Amino Transferase 12 U/L (0-32); Blood Urea Nitrogen 16 mg/dL (6-20); Calcium 9.1 mg/dL (8.5-10.5); Carbon Dioxide 22 mmol/L (22-29); Chloride 103 mmol/L (98-107); Creatinine Clr Calc Pharmacy 151.2465; Globulin 2.6 g/dL (1.3-4.6); Glomerular Filtration Rate 130.6 mL/min (90-130); Glucose 109 mg/dL (65-115); Lipase 32 U/L (13-60); Osmolality Calculated 286 mOsm/kg (285-295); Potassium 3.5 mmol/L (3.5-5.1); Sodium 137 mmol/L (136-145); Total Bilirubin 0.3 mg/dL (0.15-1.2)
[2023-03-08 04:35] LABS: Add Urine Microscopic? YES; Bilirubin Urine Neg (Negative); Blood Urine 2+ (Negative); Glucose Urine UA Norm (Normal); Ketones Urine 1+ (Negative); Leukocyte Esterase Urine Negative (Negative); Nitrate Urine Negative (Negative); Protein Urine 2+ (Negative); Urine Appearance Clear (CLEAR); Urine Color Yellow (Yellow); Urobilinogen Urine Neg (Negative); pH Urine 5 (5-7)
[2023-03-08 04:36] VITALS: BP 110/68; PULSE 71; RESP 18; O2SAT 93
[2023-03-08 04:41] LABS: Amorphous Sediment Urine 1+ /hpf; Mucus Urine 2+ /hpf; RBC Urine 0-4 /hpf (0-2); WBC Urine RARE /hpf (0-5)
[2023-03-08 04:42] LABS: Add Urine Culture? No
[2023-03-08] MEDS: ciprofloxacin 500 mg Tablet PO (04:47)
[2023-03-08] MEDS: metroNIDAZOLE 500 MG Tablet PO (04:47)
[2023-03-08 04:54] VITALS: BP 136/82; PULSE 75; RESP 18; O2SAT 95
== END 2023-03-08 04:56 | disposition home or self-care (01) ==
PROVIDERS: Emergency Provider Emergency Medicine; PCP Physician Assistant
DX: K57.32 Diverticulitis of large intestine without perforation or abscess without bleeding (principal); I10 Essential (primary) hypertension; F17.210 Nicotine dependence, cigarettes, uncomplicated
CPT/HCPCS: 74177; 80053; 81001; 83690; 85025; 96361; 96374; 96375; 99285; J2270; J2405; J7030; Q9967

== ENCOUNTER → 2023-09-02 13:47 | Outpatient (BNVA) | payer BC, SELFPAY | PROVIDERS: PCP Physician Assistant; Visit Provider Emergency Medicine | DX: M25.532 Pain in left wrist (principal); M25.522 Pain in left elbow; M25.512 Pain in left shoulder | CPT/HCPCS: 73030; 73080; 73110 ==

== ENCOUNTER 2024-02-17 07:21 | Outpatient (CLI) | payer BC, MEDICAID, SELFPAY ==
--- NOTE | 2024-02-17 07:25 | ECG_ITS ---
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 Interpretive Statements NAME OF STUDY: LEXISCAN SESTAMIBI STRESS TEST INDICATION: [Chest Pain; Shortness of Breath, ] Procedure: At the baseline, the blood pressure was 139/89 mmHg with a heart rate of 76 bpm. The electrocardiogram showed normal sinus rhythm, normal axis with normal ST and T's. The Lexiscan was infused over a period of 20 seconds. A total of 0.4 mg of Lexiscan was infused. The stress phase was continued for a total of 5 minutes. Heart rate was at the end of stress phase was 96 bpm and a blood pressure of 138/83 mmHg. The EKG at the peak infusion revealed normal sinus rhythm with no significant ST-T wave changes. Sestamibi was injected 20 seconds after the Lexiscan infusion. Blood pressure at the end of recovery phase was 140/91 mmHg with a heart rate of 95 bpm. Conclusion: 1. Normal EKG response to Lexiscan infusion 2. No Lexiscan induced chest pain or cardiac arrhythmia. 3. Normal blood pressure and heart rate response. 4. Sestamibi/sestamibi perfusion scan pending; see separate report. Electronically Signed On 02-26-2024 9:21:23 CDT by Zain Alas M.D. [id number]
--- NOTE | 2024-02-17 07:25 | NMCV_ITS ---
NM raphael perf SPECT r/s* [id number] Flor Culp Age: 49 Gender: F : 1975 Exam Date: 02/17/2024 08:01 Ordering Phys: Carlos Elizondo MD ([email or web address]) Technologist: RAMÍREZ Encarnacion Exam Location: [facility] Indications: CP, SOB STRESS TEST [facility] IMAGE PROTOCOL Rest/Stress 1 Lexiscan Day Radiopharmaceutical Dose (mCi) Administration Site Administered by Rest: Tc-99m 10.6 IV RAMÍREZ Encarnacion Sestamibi Stress:Tc-99m 32.8 IV RAMÍREZ Encarnacion Sestamibeverley Rest: 17-Feb-2024 60 Discovery 630 Stress: 17-Feb-2024 30 Discovery 630 0.4mg Lexiscan. Images obtained in supine and prone position. SPECT RESULTS Technical Quality: Good Raw Data Analysis: Breast attenuation Image Corrections: No attenuation or motion correction applied Summed Stress Score: 1 Summed Rest Score: 0 Summed Difference Score: 1 PERFUSION FINDINGS There is a small sized area of reversible perfusion defect seen in the inferior and inferolateral rodas. This is consistent with small area of ischemia in these territories. FUNCTIONAL RESULTS (calculated via Gated SPECT) Stress Image LV EF (%): 75 Stress EDV (mL):110 TID: 1.13 Stress ESV (mL):27 FUNCTIONAL FINDINGS: There is normal left ventricular systolic function. IMPRESSIONS 1. Small area of ischemia seen in the inferior and inferolateral rdoas. 2. LV systolic function is normal Zain Alas MD (Electronically Signed) Final Date: 18 February 2024 13:11 S
[2024-02-17 07:33] VITALS: BMI 39.6
[2024-02-17] MEDS: regadenoson 0.4 Mg/5 ml Syringe IVP (08:52)
[2024-02-17 09:01] VITALS: BP 140/91; PULSE 91
== END 2024-02-17 07:22 | disposition home or self-care (01) ==
LOC: CDL 07:22
PROVIDERS: PCP Physician Assistant; Visit Provider Internal Medicine Cardiovascular Disease
DX: R07.9 Chest pain, unspecified (principal); R94.39 Abnormal result of other cardiovascular function study; I10 Essential (primary) hypertension
CPT/HCPCS: 36415; 78452; 93017; 96374; A9500; J2785

== ENCOUNTER → 2025-03-07 09:35 | Outpatient (BNVA) | payer BC, MEDICAID, SELFPAY | PROVIDERS: Visit Provider Nurse Practitioner | DX: I10 Essential (primary) hypertension (principal) | CPT/HCPCS: 80053; 80061; 84443; 85025 ==

== ENCOUNTER → 2025-04-05 09:28 | Outpatient (BNVA) | payer BC, MEDICAID, SELFPAY | PROVIDERS: PCP Nurse Practitioner; Visit Provider Nurse Practitioner | DX: R11.2 Nausea with vomiting, unspecified (principal) | CPT/HCPCS: 82785; 86001; 86003 ==

== ENCOUNTER 2025-04-12 09:18 | Outpatient (CLI) | payer BC, MEDICAID, SELFPAY ==
--- NOTE | 2025-04-12 09:20 | MM_ITS ---
WS: [id number] SCREENING DIGITAL BREAST TOMOSYNTHESIS MAMMOGRAM WITH CAD HISTORY: Z12.39 - Encounter for other screening for malignant neop... COMPARISON: 11/24/2022. Bilateral CC and MLO with tomosynthesis and synthetic mammography submitted. Computer aided detection analyzed. Breast composition: The breasts are heterogeneously dense, which may obscure small masses. Nodular asymmetry in the posterior lateral RIGHT breast near the 8 to 9 o'clock. This area of asymmetry measures 3 x 5 x 6 mm and needs to be further evaluated. Additional dense fibroglandular densities in the lateral LEFT breast. Poor positioning of the LEFT breast with overlapping inframammary fold and chest wall. No suspicious grouping of calcifications in either breast. MM/MM [facility] tomosynthesis [id number] IMPRESSION: BI-RADS: 0 - Incomplete: Need additional imaging evaluation FOLLOW UP: Need Additional Imaging RIGHT breast: Spot compression views (CC and MLO). True ML. Ultrasound to follo w if abnormality persists. LEFT breast: Better positioning of the MLO projection with an ML view. Spot com pression views may also be necessary after these additional images are obtained .
== END 2025-04-12 09:19 | disposition home or self-care (01) ==
LOC: MOBLMAM 09:19
PROVIDERS: PCP Nurse Practitioner; Visit Provider Nurse Practitioner
DX: Z12.31 Encounter for screening mammogram for malignant neoplasm of breast (principal); R92.333 Mammographic heterogeneous density, bilateral breasts; N64.89 Other specified disorders of breast; R92.323 Mammographic fibroglandular density, bilateral breasts; R92.8 Other abnormal and inconclusive findings on diagnostic imaging of breast
CPT/HCPCS: 77063; 77067

== ENCOUNTER 2025-04-13 10:56 | Emergency (ER) | payer BC, MEDICAID, SELFPAY ==
[2025-04-13 11:14] VITALS: BP 202/96; PULSE 61; RESP 18; TEMP 36.8; O2SAT 96
--- NOTE | 2025-04-13 11:19 | ECG_ITS ---
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
--- NOTE | 2025-04-13 11:56 | W.ED.GENADLT ---
HPI - General Adult General: Chief complaint: General Medical Stated complaint: high bp(sent by walk-in) Time Seen by Provider: 04/13/25 11:18 History of Present Illness: 50-year-old female who presents to the emergency room with complaint of elevated blood pressure. She notes for the last several days her blood pressure been elevated to take several pressure readings today was markedly elevated she just generally does not feel well she is intermittently having some chest pain as well as some headache no visual disturbances no focal neurologic deficits. Associated symptoms: Deny chest pain, dyspnea or rash Related Data Home Medications ?Medication ?Instructions ?Recorded ?Confirmed aspirin 81 mg tablet,delayed 81 mg PO DAILY 01/19/24 04/13/25 release omega-3 fatty acids 1,000 mg 1,000 mg PO DAILY 01/19/24 04/13/25 capsule hydrochlorothiazide 25 mg tablet 25 mg PO QPM 04/13/25 04/13/25 losartan 25 mg tablet See Rx Instructions .Route .COMPLEX 04/13/25 04/13/25 Previous Rx's ?Medication ?Instructions ?Recorded metoprolol tartrate 50 mg tablet 50 mg PO BID #180 tabs 03/07/25 hydralazine 25 mg tablet 25 mg PO TID #90 tabs 04/13/25 lisinopril 40 mg tablet 40 mg PO BID #60 tabs 04/13/25 Allergies Allergy/AdvReac Type Severity Reaction Status Date / Time Penicillins Allergy JANETHY-Swell Verified 04/05/25 07:37 Lip/Tongue/Throat Review of Systems Const: Denies: fever(s) or chills Card: Denies: chest pain Resp: Denies: dyspnea GI: Denies: abdominal pain : Denies: dysuria, urinary frequency or urinary urgency Musc: Denies: neck pain or back pain Skin/Breast: Denies: rash PFSH ED PFSH: Medical History Chest pain Palpitations Hypertension Surgical History History of hysterectomy Hx of cholecystectomy History of appendectomy Family History Mother Hypertension Diabetes Father Hypertension Social History (Reviewed 04/14/25 @ 06:03 by YUSEF Figueredo Smoking and tobacco/nicotine status: current every day tobacco/nicotine user cigarettes Packs smoked per day: 1.5 Years cigarettes smoked: 30 Alcohol intake: current Alcohol intake frequency: few times a month Substance/Drug Use: never Marital status: Number of children: 2 Pets and animals: Yes Pets & animals: cat(s) Physical Exam Const: COMMON NORMALS: no acute distress GENERAL APPEARANCE: cooperative and comfortable ORIENTATION/CONSCIOUSNESS: Yes awake, Yes oriented to person, Yes oriented to place and Yes oriented to time HENMT: COMMON NORMALS: normocephalic, atraumatic and hearing grossly normal bilaterally HEAD & SCALP: normocephalic and atraumatic Resp: COMMON NORMALS: normal respiratory effort, No retractions, No use of accessory muscles and clear to auscultation bilaterally AUSCULTATION: clear to auscultation bilaterally Cardio: COMMON NORMALS: regular rate, regular rhythm and No murmurs present (Cardio) RATE: regular rate RHYTHM: regular rhythm GI: COMMON NORMALS: Soft to palpation and No hepatosplenomegaly present AUSCULTATION: Yes normoactive bowel sounds PALPATION: Yes Soft to palpation, No Tenderness to palpation present (GI), No Guarding due to palpation present (GI) and Yes No hepatosplenomegaly present Extremity: COMMON NORMALS: normal to inspection, capillary refill normal, no clubbing, cyanosis or edema, no calf tenderness and no pedal edema Neuro: SENSORIUM/ORIENTATION: Yes oriented to person, Yes oriented to place and Yes oriented to time Skin: COMMON NORMALS: no rashes or lesions noted GENERAL SKIN EXAM: no rashes or lesions noted Course Vital Signs: Vital signs: Vital Signs Temperature 98.2 F 04/13/25 11:14 Pulse Rate 59 L 04/13/25 15:04 Respiratory Rate 16 04/13/25 15:04 Blood Pressure 155/79 04/13/25 15:04 Pulse Oximetry 100 04/13/25 15:04 Oxygen Delivery Me thod Room Air 04/13/25 14:31 [facility] - General Adult Medical Decision Making EKGs cardiac enzymes no acute changes. Patient no longer having any pain. Chest x-ray unremarkable. Blood pressure transiently improved with no intervention and then began elevating he was given hydralazine will discharge patient home. She was changed recently from high-dose lisinopril to losartan 25 daily. Dosage change not equivalent. Losartan generally not nearly as effective as lisinopril she did not have any side effects or renal problems with lisinopril we will put her back on the lisinopril and add hydralazine 25 3 times daily continue her metoprolol and follow-up with her primary care doctor within the next week. At today's visit she does not have any acute coronary syndrome no sign of any focal neurologic deficits TIA or stroke Medical Records I reviewed the patient's medical records. Lab Data I reviewed the patient's lab results. 04/13/25 11:34 04/13/25 11:34 Laboratory Results WBC 11.03 10^3/uL (3.29-11.43) 04/13/25 11:34 RBC 5.40 10^6/uL (3.85-5.65) 04/13/25 11:34 Hgb 17.40 g/dL (11.27-16.99) H 04/13/25 11:34 Hct 51.2 % (36-47) H 04/13/25 11:34 MCV 94.8 fl (85-98) 04/13/25 11:34 MCH 32.2 pg (27-33) 04/13/25 11:34 MCHC 34.0 g/dL (30-55) 04/13/25 11:34 RDW 13.9 % (12.1-15.1) 04/13/25 11:34 Plt Count 336 10^3/cmm (157-399) 04/13/25 11:34 MPV 9.2 fL (7.4-10.4) 04/13/25 11:34 Neut % (Auto) 70.8 % 04/13/25 11:34 Lymph % (Auto) 21.9 % 04/13/25 11:34 [place] % (Auto) 5.1 % 04/13/25 11:34 Eos % (Auto) 1.5 % 04/13/25 11:34 Baso % (Auto) 0.3 % 04/13/25 11:34 Neut # (Auto) 7.81 10^3/uL (1.8-7.7) H 04/13/25 11:34 Lymph # (Auto) 2.4 10^3/uL (0.8-4.8) 04/13/25 11:34 [place] # (Auto) 0.6 10^3/uL (0.2-0.9) 04/13/25 11:34 Eos # (Auto) 0.2 10^3/uL (0.0-0.8) 04/13/25 11:34 Baso # (Auto) 0.0 10^3/uL (0.0-0.1) 04/13/25 11:34 Nucleated RBC % (auto) 0 % 04/13/25 11:34 Nucleated RBCs # 0.0 /100WBC 04/13/25 11:34 Sodium 139 mmol/L (136-145) 04/13/25 11:34 Potassium 4.1 mmol/L (3.5-5.1) 04/13/25 11:34 Chloride 101 mmol/L (98-107) 04/13/25 11:34 Carbon Dioxide 25 mmol/L (22-29) 04/13/25 11:34 Anion Gap 17.1 (5-19) 04/13/25 11:34 BUN 9 mg/dL (6-20) 04/13/25 11:34 Creatinine 0.6 mg/dL (0.5-0.9) 04/13/25 11:34 GFR Calculation 105.0 mL/min (90-130) 04/13/25 11:34 Glucose 86 mg/dL (65-115) 04/13/25 11:34 Calculated Osmolality 286 mOsm/kg (285-295) 04/13/25 11:34 Calcium 9.0 mg/dL (8.5-10.5) 04/13/25 11:34 Total Bilirubin 0.3 mg/dL (0.15-1.2) 04/13/25 11:34 AST 23 U/L (0-32) 04/13/25 11:34 ALT 29 U/L (0-33) 04/13/25 11:34 Alkaline Phosphatase 47 U/L (35-105) 04/13/25 11:34 Troponin T Baseline < 6 ng/L (0-10) 04/13/25 11:34 Troponin T 120 Minute < 6.0 ng/L (0-10) 04/13/25 13:31 Delta Troponin T 0 ABS# (0-10) 04/13/25 13:31 Total Protein 6.7 g/dL (6.6-8.7) 04/13/25 11:34 Albumin 4.4 g/dL (3.5-5.2) 04/13/25 11:34 Globulin 2.3 g/dL (1.3-4.6) 04/13/25 11:34 All radiology interpretation(s) finalized by discharge EKG Data EKG 1: I personally reviewed and interpreted this EKG as follows: EKG interpretation date: 04/14/25 Prior EKG tracings: available for review Interpretation: EKG 1010 2025-05-25. Sinus bradycardia rate of 56 parable 174 [address]Tc [address] changes noted. Compared to EKG 04/13/2022 no significant changes EKG 2: I personally reviewed and interpreted this EKG as follows: EKG interpretation date: 04/14/25 Prior EKG tracings: available for review Interpretation: EKG 1010 2025-06-18 sinus bradycardia no acute ST elevation rate 56 OK interval 197 QTc 431. No significant change compared to EKG done earlier same day EKG 3: I personally reviewed and interpreted this EKG as follows: EKG interpretation date: 04/14/25 Prior EKG tracings: available for review Interpretation: EKG 04/13/2025 1415 sinus rhythm rate of 60 OK interval 195 QTc 436. No acute ST changes noted compared to EKGs done previously same day Discharge Plan Discharge Patient Disposition: Home Clinical Impression: Hypertension, Chest pain Condition: Stable Prescriptions: New lisinopril 40 mg tablet 40 mg PO BID Qty: 60 0RF hydralazine 25 mg tablet 25 mg PO TID Qty: 90 0RF No Action omega-3 fatty acids 1,000 mg capsule 1,000 mg PO DAILY aspirin 81 mg tablet,delayed release (DR/EC) 81 mg PO DAILY metoprolol tartrate 50 mg tablet 50 mg PO BID Qty: 180 1RF losartan 25 mg tablet See Rx Instructions .ROUTE .COMPLEX Rx Instructions: Take 1 tablet by mouth daily for 1 week then increase to 2 tablets daily if bp is still high. hydrochlorothiazide 25 mg tablet 25 mg PO QPM Discharge Orders: Discharge ED (Routine); Ordered 04/13/25 Ordered By: Koffi Arce Referrals: Annabelle Knox FNP [Primary Care Provider, Nurse Practitioner] Discharge Diet: Usual diet Discharge Activity: Increase activity as tolerated Patient Instructions: Opioid Safety, Pain Management, Patient Portal & Naresh Instructions Activity Restrictions/Additional Instructions: Thank you [facility] choosing [facility] for your healthcare needs today. It is very important that you follow up as instructed or that you return to the Emergency Department should you have concerns or if your condition changes or worsens in any way. Emergency department visits are focused on emergent conditions, in some cases you may require further evaluation on an outpatient basis. You were seen emergency room for elevated blood pressure. Your cardiac enzymes EKG were normal. Recommend you stop losartan and resume lisinopril 40 mg twice a day in addition to this recommend that you add hydralazine 25 mg 3 times a day follow-up with your primary care doctor within the next week. (Please note that included in your discharge packet is information concerning opioid safety and pain management. This information is given to all patients were discharged from the ER regardless of their discharge diagnosis or the medicines they usually take or are prescribed.) Print Language: Libyan Coding Level of Care Code ED Auto Clutch Specialist for Dixon Shearer
[2025-04-13 12:00] VITALS: BP 167/89; PULSE 68; RESP 16; O2SAT 96
--- NOTE | 2025-04-13 12:07 | ECG_ITS ---
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
[2025-04-13 12:24] LABS: Hematocrit 51.2 % (36-47); Hemoglobin 17.40 g/dL (11.27-16.99); Mean Corpuscular HGB Conc 34.0 g/dL (30-55); Mean Corpuscular Hemoglobin 32.2 pg (27-33); Mean Corpuscular Volume 94.8 fl (85-98); Nucleated Red Blood Cells % 0 %; Platelet Count 336 10^3/cmm (157-399); Red Blood Count 5.40 10^6/uL (3.85-5.65); White Blood Count 11.03 10^3/uL (3.29-11.43)
[2025-04-13 12:45] LABS: Alanine Aminotransferase 29 U/L (0-33); Albumin Level 4.4 g/dL (3.5-5.2); Alkaline Phosphatase 47 U/L (35-105); Anion Gap 17.1 (5-19); Aspartate Amino Transferase 23 U/L (0-32); Blood Urea Nitrogen 9 mg/dL (6-20); Calcium 9.0 mg/dL (8.5-10.5); Carbon Dioxide 25 mmol/L (22-29); Chloride 101 mmol/L (98-107); Creatinine Clr Calc Pharmacy 129.8348; Globulin 2.3 g/dL (1.3-4.6); Glucose 86 mg/dL (65-115); Osmolality Calculated 286 mOsm/kg (285-295); Potassium 4.1 mmol/L (3.5-5.1); Sodium 139 mmol/L (136-145); Total Protein 6.7 g/dL (6.6-8.7); Troponin(5th) Baseline < 6 ng/L (0-10)
--- NOTE | 2025-04-13 14:07 | ECG_ITS ---
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
[2025-04-13 14:17] LABS: Troponin 5 2HR < 6.0 ng/L (0-10); Troponin 5 2HR Delta 0 ABS# (0-10)
[2025-04-13 14:31] VITALS: BP 186/110; PULSE 62; RESP 16; O2SAT 97
[2025-04-13] MEDS: hyDRALAzine 20 mg/mL INJ 1 mL 10 MG IVP (14:38)
[2025-04-13 15:04] VITALS: BP 155/79; PULSE 59; RESP 16; O2SAT 100
== END 2025-04-13 14:58 | disposition home or self-care (01) ==
PROVIDERS: Emergency Provider Family Medicine; PCP Nurse Practitioner
DX: I10 Essential (primary) hypertension (principal); R07.9 Chest pain, unspecified; Z79.82 Long term (current) use of aspirin; F17.210 Nicotine dependence, cigarettes, uncomplicated
CPT/HCPCS: 36415; 80053; 84484; 85025; 93005; 96374; 99284; J0360

== ENCOUNTER 2025-04-30 10:48 | Outpatient (CLI) | payer BC, MEDICAID, SELFPAY ==
--- NOTE | 2025-04-30 11:00 | MM_ITS ---
WS: [id number] ADDITIONAL VIEWS BILATERAL MAMMOGRAM WITH DIGITAL BREAST TOMOSYNTHESIS. HISTORY: Imaging from screening mammogram of 04/12/2025 COMPARISON: 04/12/2025, 11/24/2022 Spot compression views RIGHT breast in CC, MLO projections and true ML submitted with digital breast tomosynthesis and SM. LEFT MLO and ML. Breast composition: The breasts are heterogeneously dense, which may obscure small masses. RIGHT: The spiculated asymmetry in the lateral RIGHT breast resolves with additional imaging. There is a focal asymmetry which has been present since 2022 also in the lateral RIGHT breast. The rounded asymmetry in the posterior RIGHT breast seen best on the MLO projection is again identified. This was also present on the prior study from 11/24/2022 and no additional imaging is necessary. LEFT breast: Asymmetries are stable since 11/24/2022. MM/MM diag BI tomosynthesis [id number] IMPRESSION: BI-RADS: 2 - Benign FOLLOW UP: 1 Year Follow-up With additional imaging of each breast no persistent abnormalities are identifi ed. The spiculated asymmetry in the RIGHT breast resolves with additional imagi ng. No new mass. Return to annual screening mammography.
== END 2025-04-30 10:49 | disposition home or self-care (01) ==
LOC: RAD 10:50
PROVIDERS: PCP Nurse Practitioner; Visit Provider Nurse Practitioner
DX: Z12.31 Encounter for screening mammogram for malignant neoplasm of breast (principal); R92.333 Mammographic heterogeneous density, bilateral breasts; N64.89 Other specified disorders of breast
CPT/HCPCS: 77062; G0279

== ENCOUNTER 2025-06-09 21:29 | Emergency (ER) | payer BC, MEDICAID, SELFPAY ==
[2025-06-09 21:30] VITALS: BP 195/116; PULSE 73; RESP 16; TEMP 36.7; O2SAT 97; BMI 41.6
--- NOTE | 2025-06-09 21:36 | ECG_ITS ---
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 Measurements Intervals [place] Rate: 64 P: 45 [place]: 192 QRS: 58 QRSD: 87 T: 71 QT: 416 QTc: 431 Interpretive Statements SINUS RHYTHM Compared to ECG 04/13/2025 14:15:33 No significant changes Electronically Signed On 06-13-2025 22:18:27 BONE CHAR KILN TENDER by Barrington Raza M.D. [email or web address] [id number]
--- NOTE | 2025-06-09 21:36 | ECG_ITS ---
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 Measurements Intervals [place] Rate: 64 P: 45 ME: 192 QRS: 58 QRSD: 87 T: 71 QT: 416 QTc: 431 Interpretive Statements SINUS RHYTHM Compared to ECG 04/13/2025 14:15:33 No significant changes Electronically Signed On 06-13-2025 22:18:21 RECEIVING SPECIALIST by Barrington Raza M.D. [email or web address] [id number]
--- OUTSIDE RECORDS SUMMARY | 2025-06-09 21:41 | XMS_ITS | Patient Health Record ---
Author Organization [facility] Address [address] [place] [address] Care Team Providers Care Recreation Center Director Name Role Phone JOSE Piedra Primary Care Provider Allergies Allergen (clinical drug ingredient) Drug/Non Drug Allergy documented on EMR Reaction Allergy Type Onset Date Status almond allergenic extract Almonds (uncoded) anaphylaxis Allergy Active amoxicillin Amoxicillin *penicillins* (uncoded) anaphylaxis Allergy Active codeine codeine (uncoded) painful skin Allergy Active penicillin G Penicillin G Pot In Dextrose *penicillins* (uncoded) anaphylaxis Allergy Active tramadol Tramadol Hcl *analgesics - Opioid* (uncoded) Panic attacks Allergy Active Reason For Referral No Information Medications Medication SIG (Take, Route, Frequency, Duration) Notes Start Date End Date Status Metoprolol Succinate ER 50 M G Tablet Extended Release 24 Hour 1 tablet Orally Once a day; Duration: 90 days Active Simvastatin 10 MG Tablet 1 tablet in the evening Orally Once a day; Duration: 90 days Active NIFEdipine ER Osmotic Releas e 60MG Tablet Extended Release 24 Hour 1 tablet Orally Once a day; Duration: 90 days Active hydroCHLOROthiazide 25 MG Tablet 1 tablet in the morning Orally Once a day; Duration: 30 Active Social History Tobacco Use: Social History Observation Description Date Details (start date - stop date) Current Smoker NA - NA Social History Sexual History: Social Info Question Answer Notes Sexual History Had sex in the past 12 months (vaginal, oral, or anal)? Yes with Men only Use protection? No Have you ever had a Sexually transmitted disease ? No Drugs/Alcohol: Social Info Question Answer Notes Alcohol Screen (Audit-C) Did you have a drink containing alcohol in the past year? No Points 0 Interpretation Negative Drugs Have you used drugs other than those for medical reasons in the past 12 months? No Caffeine Intake: more than 4 cups per day Tobacco Use: Social Info Question Answer Notes Tobacco Use/Smoking Are you a current smoker How often do you smoke cigarettes? every day How many cigarettes a day do you smoke? 21-30 How soon after you wake up do you smoke your first cigarette? within 5 minutes Are you interested in quitting? 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 Problem Palpitations (65657350) Palpitations (R00.2) 2015 0 confirmed Problem Hyperlipidemia (89547135) Hyperlipidemia (E78.5) 2015 0 confirmed Problem Vitamin B12 deficiency (non anemic) (27132727) B12 deficiency (E53.8) 2015 0 confirmed Problem Tobacco use (158486912) Tobacco use disorder (F17.200) 2015 0 confirmed Plan Of Treatment Pending Test Test Name Order Date BLOOD COUNT WITH DIFF * 04/25/2018 LDL,DIRECT * 02/23/2019 HB A1C * 02/23/2019 LIPID PANEL * 02/23/2019 Future Test Test Name Order Date X ray : Elbow, left; 2 Views : 84960 Insurance Providers Payer Name Payer Address Payer Phone Subscriber Number Group Number Insured Name Patient Relationship to Insured Coverage Start Date Coverage End Date [facility] [address] [place] [address] [id number] Flor Culp Self - patient is the insured Medical (General) History Medical History History ICD Code Pain in joint, upper arm (Inactive) Spasm of muscle (Inactive) Sprain of shoulder (Inactive) Urticaria, acute (Inactive) Abscess of abdominal wall (Inactive) Chest pressure (Inactive) Headache (Inactive) Pain in limb Sprain of right wrist Insect bite (nonvenomous) of unspecified upper arm, initial encounter Sprain of great toe, right Low back pain Vitamin D insufficiency Cholecystitis with cholelithiasis (Inact kaitlynn) Incisional hernia (Inactive) Urinary frequency (Inactive) Surgical History Surgery Date(Month/Year) Appendectomy 1997 Back Surgery 07/2009 laproscopy X2 gallbladder removed TOTAL HYSTERECTOMY
--- NOTE | 2025-06-09 21:51 | XRR_ITS ---
PROCEDURE INFORMATION: Exam: XR Chest Exam date and time: 06/09/2025 10:18 PM Age: 50 years old Clinical indication: Chest pressure; Prior surgery; Surgery date: 6+ months; Surgery type: Gb; C/O chest pain with hypertension; Additional info: Cp TECHNIQUE: Imaging protocol: Radiologic exam of the chest. Views: 1 view. COMPARISON: CR XR shoulder LT min 2V* [id number] 09/02/2023 1:58 PM FINDINGS: Lungs: Unremarkable. No consolidation. Pleural spaces: Unremarkable. No pleural effusion. No pneumothorax. Heart/Mediastinum: Unremarkable. No cardiomegaly. Bones/joints: Unremarkable. XR/XR chest 1V portable [id number] IMPRESSION: No acute findings.
[2025-06-09 22:14] LABS: Hematocrit 47.3 % (36-47); Hemoglobin 15.90 g/dL (11.27-16.99); Mean Corpuscular HGB Conc 33.6 g/dL (30-55); Mean Corpuscular Hemoglobin 32.3 pg (27-33); Mean Corpuscular Volume 96.1 fl (85-98); Nucleated Red Blood Cells % 0 %; Platelet Count 317 10^3/cmm (157-399); Red Blood Count 4.92 10^6/uL (3.85-5.65); White Blood Count 11.54 10^3/uL (3.29-11.43)
[2025-06-09 22:24] VITALS: BP 167/112; PULSE 72; O2SAT 96
[2025-06-09 22:33] LABS: Troponin(5th) Baseline < 6 ng/L (0-10)
[2025-06-09 22:37] LABS: Alanine Aminotransferase 28 U/L (0-33); Albumin Level 4.4 g/dL (3.5-5.2); Alkaline Phosphatase 50 U/L (35-105); Anion Gap 14.7 (5-19); Aspartate Amino Transferase 19 U/L (0-32); Blood Urea Nitrogen 19 mg/dL (6-20); Calcium 9.3 mg/dL (8.5-10.5); Carbon Dioxide 25 mmol/L (22-29); Chloride 102 mmol/L (98-107); Globulin 2.3 g/dL (1.3-4.6); Glucose 102 mg/dL (65-115); Osmolality Calculated 288 mOsm/kg (285-295); Potassium 3.7 mmol/L (3.5-5.1); Sodium 138 mmol/L (136-145); Total Protein 6.7 g/dL (6.6-8.7)
--- NOTE | 2025-06-09 22:37 | W.ED.CHESTPA ---
HPI - Chest Pain General: Chief Complaint: Chest Pain Stated Complaint: High blood pressure, History of Present Illness: Patient is 50-year-old female presents the ED due to chest pressure. Blood pressure has been quite elevated. She has been working through this with her doctor for months. She is currently on hydrochlorothiazide, hydralazine, metoprolol, lisinopril, and compliant. She states the chest pressure was over time this afternoon. This is a pressure-like sensation with some shortness of breath. Bilateral lower extremity edema is however better. No cough, diaphoresis, nausea, vomiting. Associated symptoms: Reports dyspnea (Chronic without change) and fever(s); Deny abdominal pain, nausea, palpitations or vomiting Related Data Home Medications ?Medication ?Instructions ?Recorded ?Confirmed aspirin 81 mg tablet,delayed 81 mg PO DAILY 01/19/24 05/08/25 release omega-3 fatty acids 1,000 mg 1,000 mg PO DAILY 01/19/24 05/08/25 capsule hydrochlorothiazide 25 mg tablet 25 mg PO QPM 04/13/25 05/08/25 Previous Rx's ?Medication ?Instructions ?Recorded metoprolol tartrate 50 mg tablet 50 mg PO BID #180 tabs 03/07/25 lisinopril 40 mg tablet 40 mg PO BID #60 tabs 04/13/25 benzonatate 100 mg capsule 100 mg PO TID PRN cough #30 caps 05/08/25 doxycycline hyclate 100 mg capsule 100 mg PO BID #20 caps 05/08/25 hydralazine 50 mg tablet 50 mg PO TID #90 tabs 05/08/25 clonidine HCl 0.1 mg tablet 0.1 mg PO Q1H PRN hypertensive 06/09/25 emergency #30 tabs triamterene 75 1 tab PO DAILY #90 tabs 06/09/25 mg-hydrochlorothiazide 50 mg tablet Allergies Allergy/AdvReac Type Severity Reaction Status Date / Time Penicillins Allergy CHANA-Husseinll Verified 06/09/25 21:45 Lip/Tongue/Throat Review of Systems Const: Reports: fever(s) and fatigue; Denies: body aches ENMT: Reports: odynophagia, ear or mastoid pain, nasal discharge, nasal congestion, post nasal drip and sinus pain Card: Reports: chest pain; Denies: palpitations or irregular heart rhythm Resp: Reports: dyspnea (Chronic without change) and productive cough GI: Denies: abdominal pain, nausea or vomiting : Denies: flank pain or difficulty voiding Musc: Denies: neck pain, back pain or extremity pain Neuro: Reports: headache(s) and vertigo; Denies: numbness in extremities, weakness in extremities, sensory changes, lack of coordination, dizziness, confusion, behavioral changes, Slurred speech present or difficulty communicating thoughts Psych: Denies: anxiety or depression PFSH ED PFSH: Medical History (Updated 06/09/25 @ 23:47 by BK Crump) Chest pain Palpitations Hypertension Surgical History History of hysterectomy Hx of cholecystectomy History of appendectomy Family History Mother Hypertension Diabetes Father Hypertension Social History Smoking and tobacco/nicotine status: current every day tobacco/nicotine user cigarettes Packs smoked per day: 1.5 Years cigarettes smoked: 30 Alcohol intake: current Alcohol intake frequency: few times a month Substance/Drug Use: never Marital status: Number of children: 2 Pets and animals: Yes Pets & animals: cat(s) Physical Exam Narrative: EXAM NARRATIVE: Well appearing and no acute distress. Const: COMMON NORMALS: patient oriented x3 and alert GENERAL APPEARANCE: comfortable and well kempt HENMT: COMMON NORMALS: normocephalic, EAC's normal, Normal external nose present and moist oral mucous membranes HEAD & SCALP: normocephalic FACE & SINUS: sinus tenderness frontal and maxillary NOSE: Normal external nose present and Abnormal mucous membranes and turbinates present erythematous EXTERNAL AUDITORY CANAL: EAC's normal TYMPANIC MEMBRANE: TM abnormal TM laterality: bilateral with fluid behind the TM MOUTH: Normal oral and palatal mucosa present THROAT: posterior oropharynx abnormal cobblestoning and postnasal drainage Neck/C-Spine: COMMON NORMALS: no lymphadenopathy and no meningeal signs Resp: COMMON NORMALS: normal respiratory effort AUSCULTATION: wheezes (End expiratory wheeze, patient states is chronic) and no egophony Cardio: COMMON NORMALS: regular rate and regular rhythm RATE: regular rate RHYTHM: regular rhythm HEART SOUNDS: Murmur heart sound present (Midsystolic) GI: COMMON NORMALS: Normal to inspection, nondistended, normoactive bowel sounds present, Soft to palpation, non-tender and No hepatosplenomegaly present PALPATION: Yes Soft to palpation and Yes No hepatosplenomegaly present OTHER: No HJR : COMMON NORMALS: Yes no CVA tenderness BLADDER/KIDNEY EXAM: Yes no CVA tenderness Back/Pelvis: COMMON NORMALS: no CVA tenderness Extremity: NARRATIVE EXTREMITY EXAM: Pedal edema +1 pedal pulses +2 bilateral Neuro: COMMON NORMALS: patient oriented x3 SENSORIUM/ORIENTATION: Yes alert MENINGEAL SIGNS: Yes no meningeal signs Psych: APPEARANCE: Yes well kempt Skin: COMMON NORMALS: turgor normal GENERAL SKIN EXAM: turgor normal Course Vital Signs: Vital signs: Vital Signs Temperature 98.0 F 06/09/25 21:30 Pulse Rate 66 06/09/25 23:30 Respiratory Rate 16 06/09/25 21:30 Blood Pressure 157/102 06/09/25 23:30 Pulse Oximetry 95 06/09/25 23:30 Oxygen Delivery Me thod Room Air 06/09/25 23:30 MDM - Chest Pain Medical Decision Making Patient is a pleasant 50-year-old female with hypertension, uncontrolled, that her primary has worked on for some time. She had hypertensive symptoms tonight, associated with headache, and chest pressure. Her cardiac has been ruled out. EKG showed normal sinus rhythm. X-ray was benign. Urine protein however is quite high at 139, which I discussed with patient is quite concerning. I have changed her hydrochlorothiazide to triamterene hydrochlorothiazide. I have given her clonidine for as needed use. She has parameters on the clonidine. I have asked her to change her metoprolol, to a nonselective beta-ethan with alpha adrenergic component included. Since I change one of her medications, I am hesitant to change any additional medications since this borders on management, which is out of the scope of the ER. She is thankful for the help she received, and the negative cardiac workup for acute etiology. She understands she needs to follow-up with cardiology that is planned by her primary, have echocardiogram to assess diastolic dysfunction, and return to ED if she has further issues. I have also advised her on DASH diet, and had her look it up on the Internet to show what components are included. Mother has extensive hypertension history and is on 5 antihypertensives Medical Records I reviewed the patient's medical records. Lab Data I reviewed the patient's lab results. 06/09/25 22:09 06/09/25 22:09 Radiology Impressions Chest X-Ray 06/09/25 21:51 IMPRESSION: No acute findings. Laboratory Results WBC 11.54 10^3/uL (3.29-11.43) H 06/09/25 22:09 RBC 4.92 10^6/uL (3.85-5.65) 06/09/25 22:09 Hgb 15.90 g/dL (11.27-16.99) 06/09/25 22:09 Hct 47.3 % (36-47) H 06/09/25 22:09 MCV 96.1 fl (85-98) 06/09/25 22:09 MCH 32.3 pg (27-33) 06/09/25 22:09 MCHC 33.6 g/dL (30-55) 06/09/25 22:09 RDW 14.0 % (12.1-15.1) 06/09/25 22:09 Plt Count 317 10^3/cmm (157-399) 06/09/25 22:09 MPV 8.8 fL (7.4-10.4) 06/09/25 22:09 Neut % (Auto) 65.8 % 06/09/25 22:09 Lymph % (Auto) 26.2 % 06/09/25 22:09 [place] % (Auto) 5.6 % 06/09/25 22:09 Eos % (Auto) 1.7 % 06/09/25 22:09 Baso % (Auto) 0.4 % 06/09/25 22:09 Neut # (Auto) 7.59 10^3/uL (1.8-7.7) 06/09/25 22:09 Lymph # (Auto) 3.0 10^3/uL (0.8-4.8) 06/09/25 22:09 [place] # (Auto) 0.7 10^3/uL (0.2-0.9) 06/09/25 22:09 Eos # (Auto) 0.2 10^3/uL (0.0-0.8) 06/09/25 22:09 Baso # (Auto) 0.1 10^3/uL (0.0-0.1) 06/09/25 22:09 Nucleated RBC % (auto) 0 % 06/09/25 22:09 Nucleated RBCs # 0.0 /100WBC 06/09/25 22:09 Sodium 138 mmol/L (136-145) 06/09/25 22:09 Potassium 3.7 mmol/L (3.5-5.1) 06/09/25 22:09 Chloride 102 mmol/L (98-107) 06/09/25 22:09 Carbon Dioxide 25 mmol/L (22-29) 06/09/25 22:09 Anion Gap 14.7 (5-19) 06/09/25 22:09 BUN 19 mg/dL (6-20) 06/09/25 22:09 Creatinine 0.6 mg/dL (0.5-0.9) 06/09/25 22:09 GFR Calculation 105.0 mL/min (90-130) 06/09/25 22:09 Glucose 102 mg/dL (65-115) 06/09/25 22:09 Calculated Osmolality 288 mOsm/kg (285-295) 06/09/25 22:09 Calcium 9.3 mg/dL (8.5-10.5) 06/09/25 22:09 Total Bilirubin 0.2 mg/dL (0.15-1.2) 06/09/25 22:09 AST 19 U/L (0-32) 06/09/25 22:09 ALT 28 U/L (0-33) 06/09/25 22:09 Alkaline Phosphatase 50 U/L (35-105) 06/09/25 22:09 Troponin T Baseline < 6 ng/L (0-10) 06/09/25 22:09 Total Protein 6.7 g/dL (6.6-8.7) 06/09/25 22:09 Albumin 4.4 g/dL (3.5-5.2) 06/09/25 22:09 Globulin 2.3 g/dL (1.3-4.6) 06/09/25 22:09 Urine RBC 3-5 /hpf (0-2) 06/09/25 22:13 Urine WBC 0-5 /hpf (0-5) 06/09/25 22:13 Ur Squamous Epith Cells 0-5 /hpf (0-5) 06/09/25 22:13 Amorphous Sediment Not Reportable 06/09/25 22:13 Urine Bacteria None seen /hpf (NONE) 06/09/25 22:13 Hyaline Casts 0.40 /lpf 06/09/25 22:13 U Random Total Protein 139 mg/dL 06/09/25 22:13 All radiology interpretation(s) finalized by discharge Discharge Plan Discharge Patient Disposition: Home Clinical Impression: Atypical chest pain Hypertension Qualifiers: Hypertension type: primary hypertension Qualified Code(s): I10 - Essential (primary) hypertension Condition: Stable Prescriptions: New triamterene-hydrochlorothiazid 75-50 mg tablet 1 tab PO DAILY Qty: 90 0RF clonidine HCl 0.1 mg tablet 0.1 mg PO Q1H PRN (Reason: hypertensive emergency) Qty: 30 0RF Rx Instructions: do not exceed 5 doses per 24 hrs For blood pressure greater than 180 top number/110 bottom number. No Action omega-3 fatty acids 1,000 mg capsule 1,000 mg PO DAILY aspirin 81 mg tablet,delayed release (DR/EC) 81 mg PO DAILY doxycycline hyclate 100 mg capsule 100 mg PO BID Qty: 20 0RF hydralazine 50 mg tablet 50 mg PO TID Qty: 90 1RF benzonatate 100 mg capsule 100 mg PO TID PRN (Reason: cough) Qty: 30 0RF metoprolol tartrate 50 mg tablet 50 mg PO BID Qty: 180 1RF hydrochlorothiazide 25 mg tablet 25 mg PO QPM lisinopril 40 mg tablet 40 mg PO BID Qty: 60 0RF Discharge Orders: Discharge ED (Routine); Ordered 06/09/25 Ordered By: Stephanie Junior Referrals: Annabelle Knox FNP [Primary Care Provider, Nurse Practitioner] Discharge Diet: Low Salt Discharge Activity: Resume usual activity Patient Instructions: DASH Eating Plan (ED), Patient Portal & Naresh Instructions Activity Restrictions/Additional Instructions: - Change her hydrochlorothiazide to triamterene/hydrochlorothiazide. Obtain additional prescriptions from your primary care. -Urine protein is 139, which is high. You forgot to keep your blood pressure down so you do not end up on dialysis. - Follow-up with your primary care doctor regarding today's visit. - I did send over clonidine for emergent blood pressure. This may help with bridging your medications. You can take 1 for your top number greater than 180/or bottom number greater than 110. - Discussed changing your metoprolol to carvedilol or atenolol with your doctor. Since I changed the hydrochlorothiazide to triamterene hydrochlorothiazide at higher doses, I do not want to make a major choices and changes that your doctor needs to be making. - Since she has been to cardiology yet, it is important that you come back to the ED if you have chest pressure again. Thank you for choosing [facility] for your healthcare needs today. You have been screened and evaluated and felt safe for discharge. Health conditions do change or evolve sometimes and as such it is important that you follow up with your Primary Doctor to be re checked, 3-5 days is a general good time frame for follow up. 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
[2025-06-09 23:30] VITALS: BP 157/102; PULSE 66; O2SAT 95
[2025-06-09 23:56] VITALS: BP 157/102; PULSE 67; O2SAT 98
[2025-06-10 00:16] LABS: Add Urine Microscopic? YES; Glucose Urine UA Negative (Normal); Nitrate Urine Negative (Negative); Specific Gravity, Urine 1.016 (1.005-1.030)
== END 2025-06-09 23:56 | disposition home or self-care (01) ==
PROVIDERS: Emergency Medicine; Emergency Provider Physician Assistant; PCP Nurse Practitioner
DX: R07.89 Other chest pain (principal); I10 Essential (primary) hypertension; Z79.82 Long term (current) use of aspirin; F17.210 Nicotine dependence, cigarettes, uncomplicated
CPT/HCPCS: 36415; 71045; 80053; 81001; 84156; 84484; 85025; 93005; 99285

== ENCOUNTER → 2025-06-14 10:41 | Outpatient (BNVA) | payer BC, MEDICAID, SELFPAY | PROVIDERS: PCP Nurse Practitioner; Visit Provider Nurse Practitioner | DX: I10 Essential (primary) hypertension (principal) | CPT/HCPCS: 80048; 81000; 87086 ==